=== PATIENT | female | born 1990 | race Caucasian/White ===

== ENCOUNTER → 2017-07-20 | Outpatient (CLI) | payer OTHER ==
[2014-03-17 00:44] VITALS: BP 108/66
[~2017-07-20] MED LIST: ALPR0.25 PO; AMOX1TAB11 PO; HYDR-2758 PO; OMEP20CA9 PO
--- NOTE | 2017-07-20 10:34 | KCIC ---
Bilateral breast ultrasound: Reason for examination: Nipple discharge. Was black but now is white. Patient was lactating one first noticed 2 years ago. Bilateral whole breast ultrasound including evaluation of all 4 quadrants and the retroareolar and axillary regions of both breasts was performed. No discrete cystic or solid nodules are seen. No dilated ducts are identified. No abnormal appearing lymph nodes are seen in the either axilla. IMPRESSION: No focal abnormalities evident in either breast. Recommend clinical follow-up. BI-RADS Category 1: Negative. "Our facility is accredited by the [employer] Mammography [employer]." This patient's information has been entered into a reminder system for the patient to be notified with the results of her examination and a target date for the next mammogram. Electronically signed by: Suzette Williamson MD (07/20/2017 10:30 AM) [id number]
== END | disposition home or self-care (01) ==
LOC: KCIC US 09:31
PROVIDERS: ATTEND Obstetrics & Gynecology
DX: N64.52 Nipple discharge (principal)
CPT/HCPCS: 76641